=== PATIENT | male | born 1985 | race Asian ===

== ENCOUNTER 2020-01-28 07:20 | Inpatient (IN) | payer OTHER ==
[~2020-01-28] VITALS: Ht 180.3 cm; Wt 89.8 kg
[2020-01-28 07:25] VITALS: Ht 180.3 cm; Wt 89.8 kg
[2020-01-28 08:15] LABS: BASOPHIL % 0.3 % (0-2); RED CELL DISTRIBUTION WIDTH 12.8 % (11.5-14.5)
[2020-01-28 08:18] LABS: PLATELET COUNT 209 x10^3mcL (130-400)
[2020-01-28 08:22] LABS: CARBON DIOXIDE 22.9 mmol/L (21-32); CHLORIDE SERUM 101 mmol/L (98-107); CREATININE SERUM 0.9 mg/dL (0.7-1.3); GFR1 > 60 mL/min; GLUCOSE SERUM 104 mg/dL (74-106); POTASSIUM SERUM 4.8 mmol/L (3.5-5.1); SODIUM SERUM 133 mmol/L (136-145)
[2020-01-28 08:27] LABS: ALBUMIN 3.9 g/dL (3.4-5.0); ALKALINE PHOSPHATASE 72 U/L (46-116); ALT/SGPT 53 U/L (16-63); AST/SGOT 40 U/L (15-37); BILIRUBIN TOTAL 0.5 mg/dL (0.20-1.00); LIPASE 108 IU/L (73-393); TOTAL PROTEIN, SERUM 8.1 g/dL (6.4-8.2)
[2020-01-28 09:15] LABS: microscopic required? YES; urine erythrocyte NEGATIVE (NEGATIVE)
[2020-01-28 15:17] VITALS: BP 114/74
[2020-01-28 17:42] VITALS: BP 116/69
[2020-01-28 21:42] LABS: AMPHETAMINE QUAL UR NONE DETECTED (See below)
[2020-01-28 23:11] VITALS: BP 112/68
[2020-01-29 05:37] VITALS: BP 103/55
[2020-01-29 07:04] LABS: BASOPHIL % 0.5 % (0-2); PLATELET COUNT 165 x10^3mcL (130-400); RED CELL DISTRIBUTION WIDTH 13.6 % (11.5-14.5)
[2020-01-29 07:18] LABS: CALCIUM 8.4 mg/dL (8.5-10.1); CARBON DIOXIDE 27.8 mmol/L (21-32); CHLORIDE SERUM 102 mmol/L (98-107); GFR1 > 60 mL/min; GLUCOSE SERUM 91 mg/dL (74-106); PHOSPHOROUS 3.1 mg/dL (2.5-4.9); POTASSIUM SERUM 3.5 mmol/L (3.5-5.1); SODIUM SERUM 136 mmol/L (136-145)
[2020-01-29 09:25] VITALS: BP 111/65
[2020-01-29] MEDS ORDERED: TYLENOL ARTHRI650 MG PO (12:05)
[2020-01-29] MEDS ORDERED: ZOF4 PO (12:06)
[2020-01-29 12:18] VITALS: BP 111/65
== END 2020-01-29 13:09 | disposition home or self-care (01) | DRG 392 ==
LOC: ED 07:20 → MU 11:32
PROVIDERS: Emergency Medicine; ADMIT Internal Medicine; ATTEND Internal Medicine
DX: A08.4 Viral intestinal infection, unspecified (principal); E87.1 Hypo-osmolality and hyponatremia; Z88.0 Allergy status to penicillin; Z88.8 Allergy status to other drugs, medicaments and biological substances
CPT/HCPCS: 87046; 87046-59; G0378; J0744; J1170; J1885; J2270; J2405; J3010; J7030